=== PATIENT | female | born 1985 | race Two or more races ===

== ENCOUNTER 2018-01-30 12:59 | Emergency (ER) | payer SELFPAY ==
[2018-01-30 14:15] LABS: URINE HCG POC HCG POSITIVE (Negative)
[2018-01-30 14:16] LABS: BILIRUBIN,URINE NEGATIVE (NEG); CLARITY,URINE CLEAR; COLOR,URINE AMBER; GLUCOSE,URINE NEGATIVE (NEG); NITRITE,URINE NEGATIVE (NEG); PH,URINE 6.5; PROTEIN,URINE 30 mg/dL (NEG-TRACE)
[2018-01-30] MEDS: ONDANSETRON PF 4 MG/2 ML VIAL. IV (14:24)
[2018-01-30] MEDS: IV NORMAL SALINE 1000ML BAG 1,000 ML IV (14:24)
[2018-01-30 14:29] LABS: BACTERIA,URINE MODERATE /HPF (0-FEW); RBC,URINE OCC /HPF (0-2); SQUAMOUS EPITHELIAL CELL,UR MOD /LPF
== END 2018-01-30 15:52 | disposition home or self-care (01) ==
LOC: ER 12:59
DX: O26.891 Other specified pregnancy related conditions, first trimester (principal); O23.41 Unspecified infection of urinary tract in pregnancy, first trimester; Z3A.00 Weeks of gestation of pregnancy not specified
CPT/HCPCS: 81001; 81025; 87086; 96361; 96374; 99285-25; J2405; J7030